=== PATIENT | female | born 1930 | race African-American/Black ===

== ENCOUNTER 2018-06-11 15:23 | Outpatient (CLI) | payer MEDICARE, BC ==
--- NOTE | 2018-06-11 17:23 | ULT ---
RIGHT LOWER EXTREMITY VENOUS ULTRASOUND WITH DOPPLER: HISTORY: Swelling. Edema. COMPARISON: None. TECHNIQUE: Hoyt scale, color flow, Doppler imaging, and spectral waveform analysis was performed of the right lo wer extremity system. FINDINGS: There is compressibility, presence of flow, and augmentation in the common femoral vein, femoral, and popliteal vein. There is flow and compressibility in the posterior tibial vein. There is flow in t he greater saphenous vein and profunda vein. Incidental right inguinal lymph node measuring 4.2 cm in maximum dimension. Fatty hilum is noted. IMPRESSION: 1. Nonspecific lymphadenopathy in the right inguinal region. 2. No evidence of thrombus in the right lower extremity deep venous system. POS: [facility]
== END 2018-06-11 15:24 | disposition home or self-care (01) ==
LOC: SCSULT 15:23
PROVIDERS: ATTEND Family Medicine
DX: R60.0 Localized edema (principal)

== ENCOUNTER 2018-07-16 12:39 | Inpatient (IN) | payer MEDICARE, BC ==
[2018-07-16 14:25] LABS: #Basophils 0.1 thou/uL (0.0-0.2); #Eosinphils 0.2 thou/uL (0.0-0.7); #Monocytes 0.7 thou/uL (0.11-0.59); #Neutrophils 8.4 thou/uL (1.40-6.50); %Basophils 0.7 % (0.0-1.0); %Eosinophils 2.2 % (0.0-10.0); %Lymphocytes 17.8 % (21.0-51.0); %Monocytes 5.7 % (0.0-10.0); %Neutrophils 73.7 % (42.0-75.0); Hemoglobin 13.8 g/dL (12.0-16.0); Mean Corpuscular HGB CONC 31.9 g/dL (32.0-36.0); Mean Corpuscular Hemoglobin 28.7 pg (27.0-31.0); Mean Corpuscular Volume 90.1 fL (78.0-98.0); Mean Platelet Volume 7.7 fL (7.4-10.4); Platelet Count 302 thou/uL (130-400); RBC Distribution Width 12.1 % (11.5-14.5); White Blood Cell (WBC) Count 11.4 thou/uL (4.8-10.8)
[2018-07-16 14:45] LABS: ALT (SGPT) 15 U/L (8-55); AST (SGOT) 24 U/L (5-34); Albumin 3.9 g/dL (3.4-4.8); Alkaline Phosphatase 63 U/L (40-150); Anion Gap 11 mmol/L (10-20); BUN (Urea Nitrogen) 14 mg/dL (9.8-20.1); Bilirubin, Total 0.7 mg/dL (0.2-1.2); Calc. Creatinine Clearance 0 mL/min (70-130); Calcium 9.9 mg/dL (7.8-10.44); Carbon Dioxide 31 mmol/L (23-31); Chloride 99 mmol/L (98-107); Estimated GFR-MDRD 70; Globulin 4.1 g/dL (2.4-3.5); Glucose 125 mg/dL (83-110); Potassium 3.7 mmol/L (3.5-5.1); Sodium 137 mmol/L (136-145)
[2018-07-16] MEDS ORDERED: Bisacodyl 5 MG TAB PO PRN (16:27)
[2018-07-16] MEDS ORDERED: Nitroglycerin 0.4 MG TAB (25 Tab Bottle) SL PRN (16:27)
[2018-07-16] MEDS ORDERED: cloNIDine 0.1 MG TAB PO PRN (16:27)
[2018-07-16] MEDS ORDERED: Ondansetron PF 4 MG/2 ML Vial IVP PRN (16:27)
[2018-07-16] MEDS ORDERED: Calcium Carbonate 500 MG ChewTAB PO PRN (16:27)
[2018-07-16] MEDS ORDERED: Ondansetron ODT 4 MG TAB PO PRN (16:27)
[2018-07-16] MEDS ORDERED: Benzonatate 100 MG CAP PO PRN (16:27)
[2018-07-16] MEDS ORDERED: Senokot S 8.6-50 MG TAB PO PRN ×2 (16:27)
[2018-07-16] MEDS ORDERED: Diabetic Tussin 200 MG/10 ML UDCUP PO PRN (16:27)
[2018-07-16] MEDS ORDERED: hydrALAZINE 20 MG/ML VIAL SLOW IVP PRN (16:27)
[2018-07-16] MEDS ORDERED: Clindamycin/D5W 900 mg/50 ml Premix Bag ONE (17:19)
--- NOTE | 2018-07-16 17:35 | HP ---
DATE OF ADMISSION: 07/16/2018 PRIMARY CARE PHYSICIAN: Zain Panda M.D. CHIEF COMPLAINT: Worsening right lower extremity swelling and pain. HISTORY OF PRESENT ILLNESS: Ms. Dougherty is a pleasant 88-year-old female with past medical history of dyslipidemia who presented to the emergency room with above-mentioned complaint. History is mainl y obtained by the patient's family members present in the room. The patient has some baseline javier ia, is not able to provide much of the history. According to her caregiver and family members present in the emergency room, Ms. Dougherty has been bennett ving a hard time fighting right lower extremity swelling and possible infection for the last whole mo nth or more. The patient has had a visit with possibly a shingle catcher 2 months ago and got some sort o f procedure done on her right foot. Since then, the family has noticed worsening pain and swelling. She was actually treated with oral antibiotics twice as an outpatient and finished all of them 2 wee ks ago, but her pain and swelling are just getting worse. She is not able to bear any weight on the foot because of this. They have noticed poor appetite as well as subjective fevers and lethargy and confusion because of this. The patient has a home health care nurse who checks on her and she sugges hammad that the patient comes to the emergency room today. She actually also had an ultrasound of the right lower leg earlier last month on 06/11/2018, which wa s negative for DVT. In the emergency room, she is afebrile and stable and is not exhibiting any symptoms of sepsis. Her white cell count is marginally elevated at 11.4. Her lactic acid is 1.8. She has been given vancomy autumn so far and is now being admitted for right lower leg cellulitis with failure of outpatient therap y. PAST MEDICAL HISTORY: Dyslipidemia. PAST SURGICAL HISTORY: 1. Right shoulder surgery. 2. Abdominal surgery. 3. Hysterectomy. PSYCHIATRIC HISTORY: No anxiety, no depression. The patient has some senile versus Alzheimer's corey ntia. SOCIAL HISTORY: She lives at home with her family who are the main care providers for her. No histo ry of drug, tobacco or alcohol abuse. FAMILY HISTORY: No significant family history of premature coronary artery disease or stroke. REVIEW OF SYSTEMS: The patient has complaints of persistent pain in the right lower extremity. Othe rwise, she denies any discomfort, but the review of system is limited by the fact that the patient bennett s dementia. LABORATORY DATA: Her CBC shows WBCs at 11.4, otherwise unremarkable. No left shift, no bandemia. S ollie chemistries unremarkable. Blood sugar 125. Lactic acid 1.8. PHYSICAL EXAMINATION: VITAL SIGNS: Upon presentation, blood pressure 114/67, pulse of 85, respirations 16, saturating 95% on room air, temperature 98.1. GENERAL: Sitting up in the wheelchair in the emergency room waiting area. No acute distress. Awake , alert, oriented x3. HEENT: Mucous membranes are slightly dry. No oropharyngeal exudate or erythema. Head is normocepha lic, atraumatic. Pupils equal and reactive to light and accommodation. Extraocular movement intact. NECK: Supple without any lymphadenopathy, JVD or bruit. CHEST: Clear to auscultation without any wheezing, rales or rhonchi. CARDIOVASCULAR: Rate and rhythm is regular without any murmur, rubs or gallops. ABDOMEN: Soft, nontender, nondistended with positive bowel sounds. EXTREMITIES: Shows significant swelling of the right lower extremity extending all the way from her foot to right up her knee and she has tenderness to palpation with gentle touch. Pulses are felt wit h difficulty because of the swelling. She also has poor hygiene of her feet. No obvious open wounds are noticed. NEUROLOGIC: Nonfocal. SKIN: Free of any rashes or bruises. Feels warm and dry to touch. PSYCHIATRIC: Normal affect. IMPRESSION AND PLAN: 1. Right lower extremity cellulitis with failed outpatient therapy. No evidence of sepsis at this t sami. We will start her on broad spectrum IV antibiotic and follow the results of the blood culture. She is hemodynamically stable. We will also repeat the lower extremity Doppler ultrasound to rule o ut deep vein thrombosis as the patient's symptoms reportedly got better and then got worse. She is a lso essentially bed bound. 2. Dyslipidemia. Reconcile home medications. 3. Add deep venous thrombosis and gastrointestinal prophylaxis. We will avoid any sequential compre ssion devices due to significant swelling. Use Lovenox for now. 4. Code status, full code. Discussed with the patient's family who are the main providers. 5. 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 Continue to follow up with PCP. DISPOSITION: Ms. Dougherty is currently being admitted to the hospital for right lower extremity cell ulitis with failed outpatient therapy and rule out DVT. Estimated length of stay is at least 2-3 midnight. Further management will depend upon her clinical course.
[2018-07-16] MEDS: Sodium Chloride 0.9% 1,000 ML IV SCH (20:43)
[2018-07-16] MEDS: Famotidine 20 MG TAB PO SCH (20:44)
[2018-07-16] MEDS ORDERED: Vancomycin HCl 1 GM in Premix Bag 1 BAG IVPB SCH (21:00)
[2018-07-16] MEDS ORDERED: Cefepime 1 GM in Sodium Chloride 0.9% 100 ML IVPB SCH (21:00)
--- NOTE | 2018-07-16 22:19 | ULT ---
DOPPLER VENOUS ULTRASOUND BOTH LOWER EXTREMITIES: INDICATIONS: Edema within both lower extremities. TECHNIQUE: Hoyt-scale, color Doppler, and vascular duplex with spectral analysis was performed of the deep venou s structures of both lower extremities. The common femoral vein, superficial femoral vein, popliteal vein, posterior tibial vein, proximal greater saphenous, and proximal profunda veins were assessed bi laterally. FINDINGS: There is normal compression, flow, and augmentation seen within the deep venous structures of both lo wer extremities. IMPRESSION: No evidence of deep venous thrombosis within both lower extremities. POS: [facility]
[2018-07-16 23:47] VITALS: BMI 23.4
[2018-07-17 05:25] LABS: #Basophils 0.1 thou/uL (0.0-0.2); #Eosinphils 0.3 thou/uL (0.0-0.7); #Lymphocytes 1.9 thou/uL (1.20-3.40); #Monocytes 0.7 thou/uL (0.11-0.59); #Neutrophils 7.5 thou/uL (1.40-6.50); %Basophils 0.9 % (0.0-1.0); %Eosinophils 2.7 % (0.0-10.0); %Lymphocytes 18.1 % (21.0-51.0); %Neutrophils 71.4 % (42.0-75.0); Hemoglobin 11.4 g/dL (12.0-16.0); Mean Corpuscular HGB CONC 32.3 g/dL (32.0-36.0); Mean Corpuscular Hemoglobin 29.2 pg (27.0-31.0); Mean Corpuscular Volume 90.2 fL (78.0-98.0); Mean Platelet Volume 7.9 fL (7.4-10.4); Platelet Count 272 thou/uL (130-400); Red Blood Cell (RBC) Count 3.92 mill/uL (4.20-5.40); White Blood Cell (WBC) Count 10.5 thou/uL (4.8-10.8)
[2018-07-17 05:38] LABS: Anion Gap 12 mmol/L (10-20); BUN (Urea Nitrogen) 13 mg/dL (9.8-20.1); Calc. Creatinine Clearance 53 mL/min (70-130); Calcium 8.8 mg/dL (7.8-10.44); Carbon Dioxide 29 mmol/L (23-31); Chloride 100 mmol/L (98-107); Estimated GFR-MDRD 79; Glucose 114 mg/dL (83-110); Potassium 3.7 mmol/L (3.5-5.1); Sodium 137 mmol/L (136-145)
[2018-07-17] MEDS: Sodium Chloride 0.9% 1,000 ML IV SCH (07:17)
[2018-07-17] MEDS: Famotidine 20 MG TAB PO SCH ×2 (08:30→20:22)
[2018-07-17] MEDS: Enoxaparin Sodium 40 MG/0.4 ML SYRINGE SC SCH (08:30)
[2018-07-17] MEDS: Cefepime 1 GM in Sodium Chloride 0.9% 100 ML IVPB SCH ×2 (08:30→20:21)
[2018-07-17] MEDS: Acetaminophen 325 MG TAB PO PRN ×3 (11:13→20:30)
--- NOTE | 2018-07-17 13:15 | PDOC.PN ---
- Subjective Encounter Start Date: 07/17/18 Encounter Start Time: 13:14 Subjective: nsg notes rev, jose ovn, no new c/o, doesn't want her lunch sandwich -: and wants to know if i would like a bite - Objective Resuscitation Status: Resuscitation Status FULL:Full Resuscitation Vital Signs & Weight: Vital Signs (12 hours) Temp Pulse Resp BP BP Pulse Ox 07/17/18 11:48 97.9 F 70 19 126/74 92 L 07/17/18 07:20 97.9 F 70 18 115/76 92 L 07/17/18 04:58 94 L 07/17/18 04:00 97.5 F L 81 20 110/56 L 20 L Weight Weight 159 lb I&O: 07/16/18 07/17/18 07/18/18 06:59 06:59 06:59 Intake Total 1100 Balance 1100 Result Diagrams: 07/17/18 04:04 07/17/18 04:04 Phys Exam - Physical Examination Constitutional: NAD lying in the hospital bed HEENT: PERRLA, moist MMs Respiratory: no wheezing, no rales, no rhonchi, clear to auscultation bilateral Cardiovascular: RRR, no significant murmur, no rub Gastrointestinal: soft, positive bowel sounds Neurological: moves all 4 limbs Psychiatric: normal affect Dx/Plan - Plan * RLE cellulitis failing o/p abx * continue with inpt iv abx * compared to previous images, sujectively appers improved * d/c IVF as pt is tolerating PO - closely monitor I/O * venogram neg for DVT * * diet: as hailee * activity :as hailee * dvt ppx Review of Systems - Medications/Allergies Allergies/Adverse Reactions: Allergies Allergy/AdvReac Type Severity Reaction Status Date / Time banana Allergy Verified 07/16/18 17:53 Penicillins Allergy Verified 07/16/18 17:53 fentanyl AdvReac Verified 07/16/18 18:22 Medications: Current Medications Acetaminophen (Tylenol) 650 mg PO Q4H PRN PRN Reason: Headache/Fever/Mild Pain (1-3) Last Admin: 07/17/18 11:13 Dose: 650 mg Benzonatate (Tessalon) 100 mg PO Q6H PRN PRN Reason: Cough Bisacodyl (Dulcolax) 10 mg PO DAILYPRN PRN PRN Reason: Constipation Calcium Carbonate (Tums) 1,000 mg PO Q4H PRN PRN Reason: Heartburn or Indigestion Clonidine (Catapres) 0.1 mg PO Q4H PRN PRN Reason: SBP > 160____ Enoxaparin Sodium (Lovenox) 40 mg SC 0900 [facility] Last Admin: 07/17/18 08:30 Dose: 40 mg Famotidine (Pepcid) 20 mg PO BID [facility] Last Admin: 07/17/18 08:30 Dose: 20 mg Guaifenesin (Robitussin Sf) 200 mg PO Q4H PRN PRN Reason: Cough Hydralazine HCl (Apresoline) 10 mg SLOW IVP Q4H PRN PRN Reason: SBP > 180 and HR < 70 Sodium Chloride (Normal Saline 0.9%) 1,000 mls @ 75 mls/hr IV .[id number] [facility] Last Admin: 07/17/18 07:17 Dose: Not Given Vancomycin HCl 750 mg/ Sodium (Chloride) 250 mls @ 250 mls/hr IVPB Q12HR [facility] Cefepime HCl 1 gm/ Sodium (Chloride) 100 mls @ 200 mls/hr IVPB 0800,2000 [facility] Last Admin: 07/17/18 08:30 Dose: 100 mls Miscellaneous Medication (Pharmacy To Dose) 0 each IVPB PRN PRN PRN Reason: [facility] Pharmacy to Dose Nitroglycerin (Nitrostat) 0.4 mg SL Q5MIN PRN PRN Reason: Chest Pain Ondansetron HCl (Zofran Odt) 4 mg PO Q6H PRN PRN Reason: Nausea/Vomiting Ondansetron HCl (Zofran) 4 mg IVP Q6H PRN PRN Reason: Nausea/Vomiting Senna/Docusate Sodium (Senokot S) 2 tab PO BID PRN PRN Reason: Constipation Sodium Chloride (Flush - Normal Saline) 10 ml IVF Q12HR [facility] Last Admin: 07/17/18 08:31 Dose: Not Given Sodium Chloride (Flush - Normal Saline) 10 ml IVF PRN PRN PRN Reason: Saline Flush
[2018-07-18] MEDS: Cefepime 1 GM in Sodium Chloride 0.9% 100 ML IVPB SCH ×2 (08:10→20:18)
[2018-07-18] MEDS: Famotidine 20 MG TAB PO SCH ×2 (08:11→20:24)
[2018-07-18] MEDS: Enoxaparin Sodium 40 MG/0.4 ML SYRINGE SC SCH (08:11)
[2018-07-18 08:56] LABS: Vancomycin, Trough 2.1 ug/mL
[2018-07-18] MEDS ORDERED: Vancomycin HCl 750 MG in Sodium Chloride 0.9% 250 ML 250 ML IVPB SCH (09:00)
[2018-07-18] MEDS ORDERED: traMADol HCl 50 MG TAB PO PRN (09:09)
[2018-07-18] MEDS ORDERED: Vancomycin HCl 1.5 GM in Sodium Chloride 0.9% 250 ML 300 ML IVPB SCH (10:30)
[2018-07-18] MEDS: Acetaminophen 325 MG TAB PO SCH ×2 (15:15→20:24)
[2018-07-18] MEDS ORDERED: Acetaminophen/Codeine 30-300mg Tablet PO PRN (15:26)
[2018-07-18] MEDS: Atorvastatin Calcium 20 MG TAB PO SCH (20:24)
--- NOTE | 2018-07-18 22:10 | PDOC.PN ---
- Subjective Encounter Start Date: 07/18/18 Encounter Start Time: 14:00 Patient seen and examined for Cellulitis. No new complaints. No overnight events - Objective Resuscitation Status: Resuscitation Status FULL:Full Resuscitation MAR Reviewed: Yes Vital Signs & Weight: Vital Signs (12 hours) Temp Pulse Resp BP Pulse Ox 07/18/18 20:00 98.2 F 69 16 110/62 92 L Weight Admit Weight 159 lb Weight 159 lb I&O: 07/17/18 07/18/18 07/19/18 06:59 06:59 06:59 Intake Total 1100 1570 900 Balance 1100 1570 900 Result Diagrams: 07/17/18 04:04 07/17/18 04:04 Phys Exam - Physical Examination Constitutional: NAD Respiratory: no wheezing, no rhonchi Cardiovascular: RRR, no rub Gastrointestinal: soft, non-tender, positive bowel sounds Musculoskeletal: edema present RLE erythema Neurological: moves all 4 limbs Dx/Plan - Plan DVT proph w/SCDs 1. RLE Cellulitis - failed outpt Rx 2. HLD 3. CKD 2 4. PCN allergy PLAN: Cont Vancomycin/Cefepime Monitor Vancomycin levels Cont current meds as below Review of Systems - Review of Systems Respiratory: negative: Cough, Dry, Shortness of Breath, Hemoptysis, SOB with Excertion, Pleuritic Pain, Sputum, Wheezing Cardiovascular: negative: chest pain, palpitations, orthopnea, paroxysmal nocturnal dyspnea, edema, light headedness, other - Medications/Allergies Allergies/Adverse Reactions: Allergies Allergy/AdvReac Type Severity Reaction Status Date / Time banana Allergy Verified 07/16/18 17:53 Penicillins Allergy Verified 07/16/18 17:53 fentanyl AdvReac Verified 07/16/18 18:22 Medications: Current Medications Acetaminophen (Tylenol) 650 mg PO Q4H PRN PRN Reason: Headache/Fever/Mild Pain (1-3) Last Admin: 07/17/18 20:30 Dose: 650 mg Acetaminophen (Tylenol) 650 mg PO TID [facility] Last Admin: 07/18/18 20:24 Dose: 650 mg Acetaminophen/Codeine Phosphate (Tylenol #3) 1 tab PO Q6HR PRN PRN Reason: Pain 4-6 Aspirin (Aspirin) 325 mg PO DAILY [facility] Atorvastatin Calcium (Lipitor) 20 mg PO HS [facility] Last Admin: 07/18/18 20:24 Dose: 20 mg Benzonatate (Tessalon) 100 mg PO Q6H PRN PRN Reason: Cough Bisacodyl (Dulcolax) 10 mg PO DAILYPRN PRN PRN Reason: Constipation Calcium Carbonate (Tums) 1,000 mg PO Q4H PRN PRN Reason: Heartburn or Indigestion Clonidine (Catapres) 0.1 mg PO Q4H PRN PRN Reason: SBP > 160____ Enoxaparin Sodium (Lovenox) 40 mg SC 0900 [facility] Last Admin: 07/18/18 08:11 Dose: 40 mg Famotidine (Pepcid) 20 mg PO BID [facility] Last Admin: 07/18/18 20:24 Dose: 20 mg Guaifenesin (Robitussin Sf) 200 mg PO Q4H PRN PRN Reason: Cough Hydralazine HCl (Apresoline) 10 mg SLOW IVP Q4H PRN PRN Reason: SBP > 180 and HR < 70 Cefepime HCl 1 gm/ Sodium (Chloride) 100 mls @ 200 mls/hr IVPB 0800,2000 [facility] Last Admin: 07/18/18 20:18 Dose: 100 mls Vancomycin HCl 750 mg/ Sodium (Chloride) 250 mls @ 250 mls/hr IVPB 1100,2300 [facility] Miscellaneous Medication (Pharmacy To Dose) 0 each IVPB PRN PRN PRN Reason: [facility] Pharmacy to Dose Nitroglycerin (Nitrostat) 0.4 mg SL Q5MIN PRN PRN Reason: Chest Pain Ondansetron HCl (Zofran Odt) 4 mg PO Q6H PRN PRN Reason: Nausea/Vomiting Ondansetron HCl (Zofran) 4 mg IVP Q6H PRN PRN Reason: Nausea/Vomiting Saccharomyces Boulardii (Florastor) 250 mg PO DAILY [facility] Senna/Docusate Sodium (Senokot S) 2 tab PO BID PRN PRN Reason: Constipation Sodium Chloride (Flush - Normal Saline) 10 ml IVF Q12HR [facility] Last Admin: 07/18/18 20:25 Dose: 10 ml Sodium Chloride (Flush - Normal Saline) 10 ml IVF PRN PRN PRN Reason: Saline Flush Tramadol HCl (Ultram) 50 mg PO Q6H PRN PRN Reason: Moderate Pain (4-6) Last Admin: 07/18/18 09:43 Dose: 50 mg
[2018-07-18] MEDS: Vancomycin HCl 750 MG in Sodium Chloride 0.9% 250 ML 250 ML IVPB SCH (22:36)
[2018-07-19 06:03] LABS: #Basophils 0.1 thou/uL (0.0-0.2); #Eosinphils 0.3 thou/uL (0.0-0.7); #Lymphocytes 2.7 thou/uL (1.20-3.40); #Monocytes 0.7 thou/uL (0.11-0.59); #Neutrophils 4.2 thou/uL (1.40-6.50); %Eosinophils 3.6 % (0.0-10.0); %Lymphocytes 34.3 % (21.0-51.0); %Monocytes 8.6 % (0.0-10.0); %Neutrophils 52.4 % (42.0-75.0); Hemoglobin 11.9 g/dL (12.0-16.0); Mean Corpuscular HGB CONC 31.6 g/dL (32.0-36.0); Mean Corpuscular Hemoglobin 28.6 pg (27.0-31.0); Mean Corpuscular Volume 90.5 fL (78.0-98.0); Mean Platelet Volume 8.1 fL (7.4-10.4); Platelet Count 285 thou/uL (130-400); RBC Distribution Width 12.3 % (11.5-14.5); Red Blood Cell (RBC) Count 4.16 mill/uL (4.20-5.40)
[2018-07-19 06:25] LABS: Anion Gap 9 mmol/L (10-20); BUN (Urea Nitrogen) 6 mg/dL (9.8-20.1); Calc. Creatinine Clearance 55 mL/min (70-130); Calcium 8.6 mg/dL (7.8-10.44); Carbon Dioxide 27 mmol/L (23-31); Chloride 105 mmol/L (98-107); Estimated GFR-MDRD 81; Glucose 103 mg/dL (83-110); Magnesium 1.9 mg/dL (1.6-2.6); Potassium 3.3 mmol/L (3.5-5.1); Sodium 138 mmol/L (136-145)
[2018-07-19] MEDS: Cefepime 1 GM in Sodium Chloride 0.9% 100 ML IVPB SCH ×2 (08:36→20:38)
[2018-07-19] MEDS: Saccharomyces boulardii 250 MG CAP PO SCH (08:36)
[2018-07-19] MEDS: Famotidine 20 MG TAB PO SCH ×2 (08:36→20:40)
[2018-07-19] MEDS: Potassium Chloride 10 MEQ TAB PO SCH ×2 (08:36→17:01)
[2018-07-19] MEDS: Acetaminophen 325 MG TAB PO SCH ×3 (08:36→20:40)
[2018-07-19] MEDS: Aspirin 325 MG TAB PO SCH (08:37)
[2018-07-19] MEDS: Enoxaparin Sodium 40 MG/0.4 ML SYRINGE SC SCH (08:37)
[2018-07-19] MEDS: Vancomycin HCl 750 MG in Sodium Chloride 0.9% 250 ML 250 ML IVPB SCH ×2 (11:48→23:08)
[2018-07-19] MEDS: Atorvastatin Calcium 20 MG TAB PO SCH (20:40)
--- NOTE | 2018-07-19 21:06 | PDOC.PN ---
- Subjective Encounter Start Date: 07/19/18 Encounter Start Time: 09:00 Patient seen and examined for Cellulitis. No new complaints. No overnight events - Objective Resuscitation Status: Resuscitation Status FULL:Full Resuscitation MAR Reviewed: Yes Vital Signs & Weight: Vital Signs (12 hours) Pulse Pulse BP BP Pulse Ox 07/19/18 13:50 81 70 139/70 118/67 92 L Weight Admit Weight 159 lb Weight 159 lb I&O: 07/18/18 07/19/18 07/20/18 06:59 06:59 06:59 Intake Total 1570 1437 Balance 1570 1437 Result Diagrams: 07/19/18 04:35 07/19/18 04:36 Phys Exam - Physical Examination Constitutional: NAD Respiratory: no wheezing, no rhonchi Cardiovascular: RRR, no rub Gastrointestinal: soft, non-tender, positive bowel sounds Musculoskeletal: edema present RLE erythema improving Neurological: moves all 4 limbs Dx/Plan - Plan DVT proph w/SCDs 1. RLE Cellulitis - failed outpt Rx 2. HLD 3. CKD 2 4. Hypokalemia/ PCN allergy PLAN: Cont Vancomycin/Cefepime x 24 hr Replace Potassium Monitor Vancomycin levels Cont current meds as below Check Potassium in AM Review of Systems - Review of Systems Cardiovascular: negative: chest pain, palpitations, orthopnea, paroxysmal nocturnal dyspnea, edema, light headedness, other Gastrointestinal: negative: Nausea, Vomiting, Abdominal Pain, Diarrhea, Constipation, Melena, Hematochezia, Other - Medications/Allergies Allergies/Adverse Reactions: Allergies Allergy/AdvReac Type Severity Reaction Status Date / Time banana Allergy Verified 07/16/18 17:53 Penicillins Allergy Verified 07/16/18 17:53 fentanyl AdvReac Verified 07/16/18 18:22 Medications: Current Medications Acetaminophen (Tylenol) 650 mg PO Q4H PRN PRN Reason: Headache/Fever/Mild Pain (1-3) Last Admin: 07/17/18 20:30 Dose: 650 mg Acetaminophen (Tylenol) 650 mg PO TID [facility] Last Admin: 07/19/18 20:40 Dose: 650 mg Acetaminophen/Codeine Phosphate (Tylenol #3) 1 tab PO Q6HR PRN PRN Reason: Pain 4-6 Aspirin (Aspirin) 325 mg PO DAILY [facility] Last Admin: 07/19/18 08:37 Dose: 325 mg Atorvastatin Calcium (Lipitor) 20 mg PO HS [facility] Last Admin: 07/19/18 20:40 Dose: 20 mg Benzonatate (Tessalon) 100 mg PO Q6H PRN PRN Reason: Cough Bisacodyl (Dulcolax) 10 mg PO DAILYPRN PRN PRN Reason: Constipation Calcium Carbonate (Tums) 1,000 mg PO Q4H PRN PRN Reason: Heartburn or Indigestion Clonidine (Catapres) 0.1 mg PO Q4H PRN PRN Reason: SBP > 160____ Enoxaparin Sodium (Lovenox) 40 mg SC 0900 [facility] Last Admin: 07/19/18 08:37 Dose: 40 mg Famotidine (Pepcid) 20 mg PO BID [facility] Last Admin: 07/19/18 20:40 Dose: 20 mg Guaifenesin (Robitussin Sf) 200 mg PO Q4H PRN PRN Reason: Cough Hydralazine HCl (Apresoline) 10 mg SLOW IVP Q4H PRN PRN Reason: SBP > 180 and HR < 70 Cefepime HCl 1 gm/ Sodium (Chloride) 100 mls @ 200 mls/hr IVPB 0800,2000 [facility] Last Admin: 07/19/18 20:38 Dose: 100 mls Vancomycin HCl 750 mg/ Sodium (Chloride) 250 mls @ 250 mls/hr IVPB 1100,2300 [facility] Last Admin: 07/19/18 11:48 Dose: 250 mls Miscellaneous Medication (Pharmacy To Dose) 0 each IVPB PRN PRN PRN Reason: [facility] Pharmacy to Dose Nitroglycerin (Nitrostat) 0.4 mg SL Q5MIN PRN PRN Reason: Chest Pain Ondansetron HCl (Zofran Odt) 4 mg PO Q6H PRN PRN Reason: Nausea/Vomiting Ondansetron HCl (Zofran) 4 mg IVP Q6H PRN PRN Reason: Nausea/Vomiting Saccharomyces Boulardii (Florastor) 250 mg PO DAILY [facility] Last Admin: 07/19/18 08:36 Dose: 250 mg Senna/Docusate Sodium (Senokot S) 2 tab PO BID PRN PRN Reason: Constipation Sodium Chloride (Flush - Normal Saline) 10 ml IVF Q12HR [facility] Last Admin: 07/19/18 20:41 Dose: Not Given Sodium Chloride (Flush - Normal Saline) 10 ml IVF PRN PRN PRN Reason: Saline Flush Tramadol HCl (Ultram) 50 mg PO Q6H PRN PRN Reason: Moderate Pain (4-6) Last Admin: 07/18/18 09:43 Dose: 50 mg
[2018-07-19 22:22] LABS: Vancomycin, Trough 15.3 ug/mL
[2018-07-20] MEDS: Cefepime 1 GM in Sodium Chloride 0.9% 100 ML IVPB SCH (07:52)
[2018-07-20] MEDS: Saccharomyces boulardii 250 MG CAP PO SCH (07:52)
[2018-07-20] MEDS: Aspirin 325 MG TAB PO SCH (07:52)
[2018-07-20] MEDS: Famotidine 20 MG TAB PO SCH (07:52)
[2018-07-20] MEDS: Acetaminophen 325 MG TAB PO SCH ×2 (07:53→15:11)
[2018-07-20 07:54] VITALS: BP 167/73; TEMP 97.4
[2018-07-20] MEDS: Vancomycin HCl 750 MG in Sodium Chloride 0.9% 250 ML 250 ML IVPB SCH (11:11)
--- NOTE | 2018-07-20 13:41 | DIS ---
DATE OF ADMISSION: 07/16/2018 DATE OF DISCHARGE: 07/20/2018 DISCHARGE DISPOSITION: Home. FOLLOWUP: Follow up with primary care physician, Dr. Zain Panda in 1 week. ALLERGIES: The patient is allergic to PENICILLIN and FENTANYL. DISCHARGE MEDICATIONS: Keflex 500 mg 3 times daily for 10 days, doxycycline 100 mg b.i.d. for the ne xt 10 days, Florastor 250 mg daily, aspirin 325 mg daily, Lipitor 20 mg at bedtime, Tylenol #3 as nee ded. The patient was seen and examined on the day of discharge, denies any new complaints, no chest pain, shortness of breath, palpitations. BRIEF HOSPITAL COURSE: The patient is an 88-year-old female who presented to the emergency room with worsening right lower extremity swelling along with erythema. She was recently diagnosed with cellu litis and failed outpatient therapy. Please refer to the history and physical dated 07/16/[address] Kalia Van for further details. The patient was admitted to the hospital with a diagnosis of cellulitis. She was started on vancomyc in with cefepime with good improvement in her symptoms. Erythema and swelling has significantly impr rosas. She appears stable for discharge on oral antibiotics. Plan of care was discussed with the pat allyssa in detail. She stated understanding. FINAL DIAGNOSES: 1. Right lower extremity cellulitis. Please note patient failed outpatient therapy. 2. Hyperlipidemia. 3. Chronic kidney disease stage 2. 4. Hypokalemia, replaced. The patient will benefit from a repeat BMP after 1 week. 5. Penicillin allergy. The plan of care was discussed with the patient in detail. She stated understanding.
== END 2018-07-20 16:50 | disposition home or self-care (01) | DRG 603 ==
LOC: ERS 12:39 → T4-B 17:47
PROVIDERS: ADMIT Internal Medicine; ATTEND Internal Medicine
DX: L03.115 Cellulitis of right lower limb (principal); N18.2 Chronic kidney disease, stage 2 (mild); E87.6 Hypokalemia; E78.5 Hyperlipidemia, unspecified; Z88.0 Allergy status to penicillin; Z88.1 Allergy status to other antibiotic agents; Z91.018 Allergy to other foods; F03.90 Unspecified dementia, unspecified severity, without behavioral disturbance, psychotic disturbance, mood disturbance, and anxiety
CPT/HCPCS: 36415; 80048; 80053; 80202; 83605; 83735; 84132; 85025; 87040; 93970; 96365; 96367; G8978-GP-CK; G8979-GP-CJ; G8987-GO-CJ; G8988-GO-CI; G8996-GN-CK; G8997-GN-CI; J0692; J1650; J3370; J3490; J7050

== ENCOUNTER 2018-08-08 17:44 | Inpatient (IN) | payer MEDICARE, BC ==
[2018-08-08 19:27] LABS: #Basophils 0.1 thou/uL (0.0-0.2); #Eosinphils 0.4 thou/uL (0.0-0.7); #Lymphocytes 2.5 thou/uL (1.20-3.40); #Monocytes 0.6 thou/uL (0.11-0.59); #Neutrophils 3.6 thou/uL (1.40-6.50); %Basophils 1.3 % (0.0-1.0); %Monocytes 8.1 % (0.0-10.0); %Neutrophils 50.5 % (42.0-75.0); Hemoglobin 11.9 g/dL (12.0-16.0); Mean Corpuscular HGB CONC 33.4 g/dL (32.0-36.0); Mean Corpuscular Hemoglobin 29.9 pg (27.0-31.0); Mean Corpuscular Volume 89.4 fL (78.0-98.0); Mean Platelet Volume 8.4 fL (7.4-10.4); Platelet Count 221 thou/uL (130-400); RBC Distribution Width 12.3 % (11.5-14.5); Red Blood Cell (RBC) Count 3.97 mill/uL (4.20-5.40)
[2018-08-08 19:36] LABS: Bilirubin Negative (Negative); Blood, Urine Negative (Negative); Clarity CLOUDY (Clear); Glucose, Urine (Dipstick) Negative (Negative); Leukocyte Moderate (Negative); Nitrite Negative (Negative); Protein, Urine (Dipstick) Negative (Neg-Trace); Specific Gravity, Urine 1.009 (1.002-1.036); Urobilinogen 0.2 mg/dL (0.2-1.0); pH, Urine 6.5 (5.0-9.0)
[2018-08-08 19:38] LABS: Bacteria/HPF None Seen HPF (None Seen); Hyaline Casts/LPF 0-3 HYALINE CAST LPF (0-3 Hyaline); Pathc Cast-AUWi Flag 0.43 (0-2.49); Squamous Epithelial 0-3 HPF (0-3)
[2018-08-08 19:39] LABS: Yeast-AUWi Flag 35.3 (0-25.0)
[2018-08-08 19:40] LABS: ALT (SGPT) Less than 7 U/L (8-55); AST (SGOT) 13 U/L (5-34); Albumin 3.7 g/dL (3.4-4.8); Alkaline Phosphatase 73 U/L (40-150); Anion Gap 10 mmol/L (10-20); BUN (Urea Nitrogen) 8 mg/dL (9.8-20.1); Bilirubin, Total 0.4 mg/dL (0.2-1.2); CK (CPK) 41 U/L (29-168); Calc. Creatinine Clearance 0 mL/min (70-130); Calcium 9.3 mg/dL (7.8-10.44); Carbon Dioxide 31 mmol/L (23-31); Chloride 101 mmol/L (98-107); Estimated GFR-MDRD 81; Globulin 3.6 g/dL (2.4-3.5); Glucose 107 mg/dL (83-110); Potassium 3.2 mmol/L (3.5-5.1); Protein, Total 7.3 g/dL (6.0-8.3); Sodium 139 mmol/L (136-145)
[2018-08-08 19:44] LABS: CKMB 0.9 ng/mL (0-6.6); Troponin I Less than 0.010 ng/mL (< 0.028)
[2018-08-08 19:46] LABS: Transitional Epithelial 0-3 HPF (0-3); Yeast-All Forms None Seen HPF (None Seen)
--- NOTE | 2018-08-08 20:13 | RAD ---
PORTABLE CHEST: 08/08/18 HISTORY: Dyspnea. COMPARISON: The most recent prior examination which is 08/30/10. Heart size is within normal limits for portable technique. There are atherosclerotic changes of the a deborah. There are pleural based plaques, some of which are calcified. I do not see any definite calcifi cation along the hemidiaphragms. The changes do raise the possibility of asbestosis exposure. Changes were present slightly less prominent on the prior exam. Pleural based plaques raising the possibility of asbestosis exposure with some mild chronic interstit ial lung change. POS: [facility]
[2018-08-08] MEDS ORDERED: MEROPENEM 1 GM/50 ML 1 GM in Premix Bag 1 BAG IVPB SCH (20:15)
--- NOTE | 2018-08-08 21:24 | ULT ---
BILATERAL LOWER EXTREMITY VENOUS DOPPLER ULTRASOUND 08/08/18 COMPARISON: None. HISTORY: Pain, edema and redness, swelling, assess for DVT. TECHNIQUE: Multiplanar buchanan scale sonographic imaging of the venous structures of bilateral lower extremities ob tained with color flow and spectral analysis. FINDINGS: Right common femoral vein, greater saphenous vein, profunda femoral vein, femoral vein, popliteal vei n, and posterior tibial vein are patent. There is normal blood flow, augmentation and compression wit hin the deep venous system on the right. No evidence for right lower extremity DVT. Left common femoral vein, greater saphenous vein, and profunda femoral vein are patent. There is only partial compression of the femoral vein in the mid and distal thigh, evidence of DVT. Left popliteal vein is compressible and left posterior tibial vein is patent. IMPRESSION: Incomplete compression of the mid and distal left femoral vein, evidence of DVT. The performing sonog rapher relayed this information to Dr. Weiss at the time of the procedure. POS: [facility]
[2018-08-08] MEDS ORDERED: Morphine 4 MG/ML VIAL ONE (21:48)
[2018-08-08] MEDS ORDERED: Ondansetron ODT 4 MG TAB PO PRN (22:40)
[2018-08-08] MEDS ORDERED: Acetaminophen 325 MG TAB PO PRN (22:40)
[2018-08-08] MEDS ORDERED: Ondansetron PF 4 MG/2 ML Vial IVP PRN (22:40)
[2018-08-08] MEDS ORDERED: Enoxaparin Sodium 80 MG/0.8 ML SYRINGE SC SCH (23:00)
[2018-08-08] MEDS ORDERED: Enoxaparin Sodium 80 MG/0.8 ML SYRINGE ONE ×2 (23:27→23:34)
[2018-08-08] MEDS ORDERED: Enoxaparin Sodium 100 MG/ML SYRINGE ONE (23:36)
[2018-08-09 00:50] VITALS: BMI 24.5
[2018-08-09] MEDS: Haloperidol Lactate 5 MG/ML VIAL IM PRN ×3 (01:24→22:22)
[2018-08-09] MEDS: Sodium Chloride 0.9% 1,000 ML IV SCH ×3 (01:27→20:59)
--- NOTE | 2018-08-09 05:00 | HP ---
CHIEF COMPLAINT: Right Lower leg edema. HISTORY OF PRESENT ILLNESS: This is an 88-year-old female with past medical history of hyperlipidemia, presenting with Right lower extremity swelling. The patient also stated that there is pain in the Right lower extremity. The patient was recently hospitalized for similar presentation on 07/16/2018. The patient at that time was started and completed on some antibiotics. The patient went to the primary care doctor, Dr. Panda and the patient was started on doxycycline and Keflex in the outpatient setting. At this point, the patient is coming back because the patient edema and pain at R lower extremity are now worsening. The patient endorses 8/10 pain, dull in nature, and the condition is not being relieved by anything at this time. At this time, the patient denies any fever, chills, nausea, vomiting, chest pain, palpitations, shortness of breath, abdominal pain, constipation, diarrhea, hematochezia, melena, dysuria, or hematuria, but admits to having pain in the lower extremities bilaterally and some edema. ROS: positive for R lower ext pain, otherwise as documented in HPI, all systems reviewed and are negative. PAST MEDICAL HISTORY: Significant for hyperlipidemia. FAMILY HISTORY: Reviewed and nonsignificant to this visit. PAST SURGICAL HISTORY: The patient had right shoulder surgery in the past, hysterectomy. PSYCH HISTORY: The patient has no previous psych history. SOCIAL HISTORY: The patient denies alcohol use, the patient denies illicit drug use, and the patient denies any smoking history. ALLERGIES: THE PATIENT IS ALLERGIC TO PENICILLINS AND BANANA. CURRENT MEDICATIONS: The patient takes aspirin 81 mg and simvastatin 40 mg. PHYSICAL EXAMINATION: VITAL SIGNS: Blood pressure is 126/60, pulse of 84, respiratory rate of 13, and O2 saturation of 95% on room air. GENERAL: The patient is lying in bed, little bit confused, however, able to state her name. The patient is not in any acute distress. HEENT: Normocephalic and atraumatic. Pupils are equally round and reactive to light. Extraocular movements are intact. No scleral icterus. No conjunctival pallor. Mucous membranes are moist. NECK: Trachea is midline. Full range of motion. No JVDs. Supple. RESPIRATORY: Lungs are clear to auscultation bilaterally. No wheezing, no rales, no rhonchi appreciated. CARDIAC: Positive S1 and S2. Regular rate and rhythm. No murmurs, no gallops , no rubs appreciated. ABDOMEN: Soft, nontender, and nondistended. Positive bowel sounds in all quadrants. No peritoneal signs. No palpable masses appreciated. EXTREMITIES: The patient has 5/5 upper extremity strength and 5/5 lower extremity strength. The patient has good pulses bilaterally in the upper and lower extremities. There is no edema of the upper extremities. In the lower extremities, the patient do have right leg cellulitis which has extended all the way up to the of middle of the leg below the knee with some erythema noted and 1+ edema also noted. NEURO: Cranial nerves 2 through 12 grossly intact. No neurologic deficits noted. SKIN: Warm, dry, and intact. Kindly refer to the description of the right lower extremity. DIAGNOSTIC DATA: 1. EKG that was done showed normal sinus rhythm with a rate of 75. 2. Chest x-ray showed no acute changes. ED COURSE: The patient was given Lovenox, meropenem, vancomycin, sodium chloride, and morphine injection for pain. LABORATORY DATA: WBC is 7.0, hemoglobin is 11.9, hematocrit is 35.5, and platelet count is 221. Sodium is 139, potassium is 3.2, chloride is 101, carbon dioxide of 31, anion gap of 10, BUN is 8, creatinine is 0.81, glucose of 107. Lactic acid is 1.1. AST is 13, ALT is less than 7, and alkaline phosphatase is 73. Troponin is less than 0.010. BNP is 56. Urinalysis shows moderate leuko esterases. ASSESSMENT/PLAN: This is an 88-year-old female who is being admitted for; 1. Right lower extremity deep vein thrombosis. The patient has been started on therapeutic Lovenox at this time. We will continue the patient on Lovenox. We will follow up ammonia labs. We will transition the patient to p.o. anticoagulation in the a.m. 2. Right lower extremity cellulitis. The patient eventually continued on vancomycin. We will monitor the patient's BMP in the a.m. and we will continue to monitor the patient. 3. Urinary tract infection. We will continue the patient on vancomycin and Rocephin for the urinary tract infection. We will continue to monitor the patient closely. We will monitor the patient's mental status. 4. Hyperlipidemia. We will continue the patient on her home medications. 5. Deep vein thrombosis and gastrointestinal prophylaxis. Patient seen and examined on 08/08/2018 Job ID: [id number] MTDD
[2018-08-09 06:21] LABS: #Basophils 0.1 thou/uL (0.0-0.2); #Eosinphils 0.4 thou/uL (0.0-0.7); #Lymphocytes 2.2 thou/uL (1.20-3.40); #Monocytes 0.6 thou/uL (0.11-0.59); #Neutrophils 3.8 thou/uL (1.40-6.50); %Basophils 0.8 % (0.0-1.0); %Eosinophils 5.1 % (0.0-10.0); %Lymphocytes 31.4 % (21.0-51.0); %Monocytes 8.2 % (0.0-10.0); %Neutrophils 54.6 % (42.0-75.0); Hemoglobin 10.8 g/dL (12.0-16.0); Mean Corpuscular HGB CONC 33.3 g/dL (32.0-36.0); Mean Corpuscular Hemoglobin 29.9 pg (27.0-31.0); Mean Corpuscular Volume 89.8 fL (78.0-98.0); Mean Platelet Volume 8.4 fL (7.4-10.4); Platelet Count 205 thou/uL (130-400); RBC Distribution Width 12.4 % (11.5-14.5); Red Blood Cell (RBC) Count 3.61 mill/uL (4.20-5.40)
[2018-08-09 06:35] LABS: Anion Gap 8 mmol/L (10-20); BUN (Urea Nitrogen) 7 mg/dL (9.8-20.1); Calc. Creatinine Clearance 58 mL/min (70-130); Calcium 8.9 mg/dL (7.8-10.44); Carbon Dioxide 30 mmol/L (23-31); Chloride 106 mmol/L (98-107); Estimated GFR-MDRD 87; Glucose 102 mg/dL (83-110); Potassium 3.2 mmol/L (3.5-5.1); Sodium 141 mmol/L (136-145)
[2018-08-09] MEDS: Aspirin 325 MG TAB PO SCH (08:54)
[2018-08-09] MEDS: Famotidine 20 MG TAB PO SCH ×2 (08:54→20:52)
[2018-08-09] MEDS: Famotidine/PF 20 mg/2ml Vial SLOW IVP SCH ×2 (08:55→20:53)
[2018-08-09] MEDS: Vancomycin HCl 750 MG in Sodium Chloride 0.9% 250 ML 250 ML IVPB SCH ×2 (08:58→20:53)
[2018-08-09] MEDS: Aztreonam 1 GM in Sodium Chloride 0.9% 100 ML IVPB SCH ×2 (08:58→20:52)
[2018-08-09] MEDS ORDERED: Enoxaparin Sodium 80 MG/0.8 ML SYRINGE SC SCH (09:00)
--- NOTE | 2018-08-09 12:52 | PQF ---
ALEXIS LEWIS RICHA MD [id number] [facility]-264 [id number] CLINICAL DOCUMENTATION IMPROVEMENT CLARIFICATION FORM: ICD-10 Updated PLEASE DO AN ADDENDUM TO THE PROGRESS NOTE WITH ANY DOCUMENTATION UPDATES OR ADDITIONS AND CARRY THROUGH TO DC SUMMARY. THANK YOU. DATE: 08-09-18 ATTN: DR. ULRICH Please exercise your independent, professional judgment in responding to the clarification form. Clinical indicators are provided on the bottom of this form for your review Please check appropriate box(s): x__ I (concur) with the NURSING findings as stated below. [ x] Pressure Ulcer: (Stage I: Erythema; Stage II: Partial thickness; Stage III : Full thickness; Stage IV: Necrosis to muscle/bone) [ ] Location: POA: [ x] Yes [ ] No[ ] Unable to determine Stage (I to IV): (Left___x__ Right Bilateral N/A ) [ ] No pressure ulcer diagnosis [ ] Other diagnosis [ ] Unable to determine In addition, please specify: Present on Admission (POA): [ x] Yes [ ] No [ ] Unable to determine For continuity of documentation, please document condition throughout progress notes and discharge summary. Thank You. CLINICAL INDICATORS - SIGNS / SYMPTOMS / LABS 08-09 NURSING ASSESSMENT: PU STAGE 2 LEFT BUTTOCK RISK FACTORS: ED: IMPAIRED MOBILITY - USES WALKER H&P: BLE SWELLING W/ RIGHT DVT AND CELLULITIS 08-09 NURSING ASSESSMENT - DIAPER/INCONTINENT TREATMENTS: 08-09 NURSING ASSESSMENT * 2 PERSON ASSIST * ENCOURAGE PT TO REPOSITION FREQUENTLY * INCONTINENCE CARE PRODUCTS USED PRN * MATTRESS: PRESSURE REDUCTION THANK YOU, SARAH (This form is maintained as a part of the permanent medical record) 2014 [employer]. All Rights Reserved Sarah Bang RN, BS [email or web address]
--- NOTE | 2018-08-09 13:28 | PDOC.PN ---
- Subjective Encounter Start Date: 08/09/18 Encounter Start Time: 13:25 Subjective: pt was agitated earlier & recevied some med & now asleep -: family at bedside & care discussed.chart reviewed -: recurrent pain & swelling right leg ,now Left leg as well - Objective Resuscitation Status - Order Detail: 08/08/18 22:40 Resuscitation Status Routine Resuscitation Status: FULL: Full Resuscitation MAR Reviewed: Yes Vital Signs & Weight: Vital Signs (12 hours) Temp Pulse Resp BP Pulse Ox 08/09/18 08:00 98.3 F 70 20 165/88 H 100 08/09/18 04:00 98.3 F 81 20 134/65 92 L Weight Weight 157 lb Result Diagrams: 08/09/18 05:33 08/09/18 05:33 Additional Labs: Microbiology 08/08/18 19:48 Venous blood - Left Arm Blood Culture - Preliminary Specimen has been received and culture in progress. No Growth to date. 08/08/18 19:41 Venous blood - Right Arm Blood Culture - Preliminary Specimen has been received and culture in progress. No Growth to date. Phys Exam - Physical Examination Constitutional: NAD HEENT: moist MMs, oral pharynx no lesions Neck: no nodes, no JVD, supple, full ROM Respiratory: no wheezing, no rales, no rhonchi Cardiovascular: RRR, no significant murmur Gastrointestinal: soft, no distention, positive bowel sounds Musculoskeletal: no edema, pulses present warmth R leg w erythema.not much left leg-family reports improvement Neurological: moves all 4 limbs Lymphatic: no nodes Skin: no rash Dx/Plan (1) Deep venous thrombosis of left femoral vein Code(s): I82.412 - ACUTE EMBOLISM AND THROMBOSIS OF LEFT FEMORAL VEIN Status: Acute (2) Recurrent cellulitis of lower extremity Code(s): L03.119 - CELLULITIS OF UNSPECIFIED PART OF LIMB Status: Acute (3) HLD (hyperlipidemia) Code(s): E78.5 - HYPERLIPIDEMIA, UNSPECIFIED Status: Chronic - Plan plan discussed w/ family, continue antibiotics, PT/OT, out of bed/ambulate, DVT proph w/SCDs change Lovenox to Eliquis, 10 mg BID X7 days ,then 5 BID X 3 months -: cont ABx. -: may need suppressive RX for recurrent episodes.ID referral as an OP -: HD stable.cont gentle IVF -: am labs. * . Review of Systems - Review of Systems Other: can not be obtained due to somnolence - Medications/Allergies Allergies/Adverse Reactions: Allergies Allergy/AdvReac Type Severity Reaction Status Date / Time banana Allergy Verified 08/09/18 06:40 Penicillins Allergy Verified 08/09/18 06:40 fentanyl AdvReac Verified 08/09/18 06:40 Medications: Current Medications Acetaminophen (Tylenol) 650 mg PO Q4H PRN PRN Reason: Headache/Fever/Mild Pain (1-3) Apixaban (Eliquis) 10 mg PO BID [facility] Aspirin (Aspirin) 325 mg PO DAILY [facility] Last Admin: 08/09/18 08:54 Dose: 325 mg Atorvastatin Calcium (Lipitor) 20 mg PO HS [facility] Famotidine (Pepcid) 20 mg SLOW IVP Q12HR [facility] Last Admin: 08/09/18 08:55 Dose: Not Given Famotidine (Pepcid) 20 mg PO BID [facility] Last Admin: 08/09/18 08:54 Dose: 20 mg Haloperidol Lactate (Haldol) 2 mg IM Q4H PRN PRN Reason: .AGITATION Last Admin: 08/09/18 08:56 Dose: 2 mg Sodium Chloride (Normal Saline 0.9%) 1,000 mls @ 75 mls/hr IV .[id number] [facility] Last Admin: 08/09/18 01:28 Dose: Not Given Vancomycin HCl 750 mg/ Sodium (Chloride) 250 mls @ 250 mls/hr IVPB Q12HR [facility] Last Admin: 08/09/18 08:58 Dose: 250 mls Aztreonam 1 gm/ Sodium (Chloride) 100 mls @ 100 mls/hr IVPB Q12HR [facility] Last Admin: 08/09/18 08:58 Dose: 100 mls Miscellaneous Medication (Pharmacy To Dose) 0 each IVPB ONE PRN PRN Reason: LOVENOX Pharmacy to dose Stop: 08/09/18 22:48 Miscellaneous Medication (Pharmacy To Dose) 1 each IVPB PRN PRN PRN Reason: Pharmacy to dose Ondansetron HCl (Zofran Odt) 4 mg PO Q6H PRN PRN Reason: Nausea/Vomiting Ondansetron HCl (Zofran) 4 mg IVP Q6H PRN PRN Reason: Nausea/Vomiting Sodium Chloride (Flush - Normal Saline) 10 ml IVF Q12HR [facility] Last Admin: 08/09/18 08:58 Dose: 10 ml Sodium Chloride (Flush - Normal Saline) 10 ml IVF PRN PRN PRN Reason: Saline Flush
[2018-08-09] MEDS: Apixaban 5 MG TAB PO SCH (20:53)
[2018-08-09] MEDS: Atorvastatin Calcium 20 MG TAB PO SCH (20:53)
[2018-08-10] MEDS: Haloperidol Lactate 5 MG/ML VIAL IM PRN (02:07)
[2018-08-10 09:16] LABS: Vancomycin, Trough 11.7 ug/mL
[2018-08-10] MEDS: Famotidine 20 MG TAB PO SCH ×2 (10:15→21:16)
[2018-08-10] MEDS: Aztreonam 1 GM in Sodium Chloride 0.9% 100 ML IVPB SCH ×2 (10:15→21:16)
[2018-08-10] MEDS: Famotidine/PF 20 mg/2ml Vial SLOW IVP SCH ×2 (10:15→21:17)
[2018-08-10] MEDS: Apixaban 5 MG TAB PO SCH ×2 (10:15→21:16)
[2018-08-10] MEDS: Aspirin 325 MG TAB PO SCH (10:16)
[2018-08-10] MEDS: Sodium Chloride 0.9% 1,000 ML IV SCH (10:16)
[2018-08-10] MEDS: Vancomycin HCl 1 GM in Premix Bag 1 BAG IVPB SCH ×2 (12:21→23:33)
[2018-08-10] MEDS: Vancomycin HCl 750 MG in Sodium Chloride 0.9% 250 ML 250 ML IVPB SCH (12:22)
--- NOTE | 2018-08-10 15:30 | PDOC.PN ---
- Subjective Encounter Start Date: 08/10/18 Encounter Start Time: 08:40 Pt seen for followup re: DVT. Pt sleepy but arousable, unable to provide history, unable to complete ROS. - Objective Resuscitation Status - Order Detail: 08/08/18 22:40 Resuscitation Status Routine Resuscitation Status: FULL: Full Resuscitation MAR Reviewed: Yes Vital Signs & Weight: Vital Signs (12 hours) Temp Pulse Pulse Pulse Resp BP BP 08/10/18 14:35 79 130/81 133/71 08/10/18 12:51 96.6 F L 86 16 08/10/18 11:30 93 86 186/86 H 185/87 H 08/10/18 08:00 98.5 F 78 17 BP Pulse Ox 08/10/18 14:35 08/10/18 12:51 141/82 H 95 08/10/18 11:30 08/10/18 08:00 148/76 H 93 L Weight Admit Weight 157 lb Weight 157 lb I&O: 08/09/18 08/10/18 08/11/18 06:59 06:59 06:59 Intake Total 914 Output Total 600 Balance 314 Result Diagrams: 08/09/18 05:33 08/09/18 05:33 EKG Reviewed by me: Yes (Tele: NSR) Phys Exam - Physical Examination Constitutional: NAD HEENT: moist MMs Neck: supple Respiratory: clear to auscultation bilateral Cardiovascular: RRR Gastrointestinal: soft Neurological: moves all 4 limbs Deviation from normal: Unable to assess Deviation from normal: No clear evidence of cellulitis; wounds as documented Dx/Plan (1) UTI (urinary tract infection) Status: Acute Comment: continue IV antibiotics as below, await urine cultures (2) Deep venous thrombosis of left femoral vein Code(s): I82.412 - ACUTE EMBOLISM AND THROMBOSIS OF LEFT FEMORAL VEIN Status: Acute Comment: continue Eliquis (3) HLD (hyperlipidemia) Code(s): E78.5 - HYPERLIPIDEMIA, UNSPECIFIED Status: Chronic Comment: continue statin (4) Cellulitis Code(s): L03.90 - CELLULITIS, UNSPECIFIED Status: Suspected - Plan * . Review of Systems - Medications/Allergies Allergies/Adverse Reactions: Allergies Allergy/AdvReac Type Severity Reaction Status Date / Time banana Allergy Verified 08/09/18 06:40 Penicillins Allergy Verified 08/09/18 06:40 fentanyl AdvReac Verified 08/09/18 06:40 Medications: Current Medications Acetaminophen (Tylenol) 650 mg PO Q4H PRN PRN Reason: Headache/Fever/Mild Pain (1-3) Apixaban (Eliquis) 10 mg PO BID [facility] Last Admin: 08/10/18 10:15 Dose: 10 mg Aspirin (Aspirin) 325 mg PO DAILY [facility] Last Admin: 08/10/18 10:16 Dose: 325 mg Atorvastatin Calcium (Lipitor) 20 mg PO HS [facility] Last Admin: 08/09/18 20:53 Dose: 20 mg Famotidine (Pepcid) 20 mg SLOW IVP Q12HR [facility] Last Admin: 08/10/18 10:15 Dose: 20 mg Famotidine (Pepcid) 20 mg PO BID [facility] Last Admin: 08/10/18 10:15 Dose: 20 mg Haloperidol Lactate (Haldol) 2 mg IM Q2H PRN PRN Reason: .AGITATION Last Admin: 08/10/18 02:07 Dose: 2 mg Sodium Chloride (Normal Saline 0.9%) 1,000 mls @ 75 mls/hr IV .[id number] [facility] Last Admin: 08/10/18 10:16 Dose: 1,000 mls Aztreonam 1 gm/ Sodium (Chloride) 100 mls @ 100 mls/hr IVPB Q12HR [facility] Last Admin: 08/10/18 10:15 Dose: 100 mls Vancomycin HCl 1 gm/ Device 200 mls @ 200 mls/hr IVPB 1100,2300 [facility] Last Admin: 08/10/18 12:21 Dose: 200 mls Miscellaneous Medication (Pharmacy To Dose) 1 each IVPB PRN PRN PRN Reason: Pharmacy to dose Ondansetron HCl (Zofran Odt) 4 mg PO Q6H PRN PRN Reason: Nausea/Vomiting Ondansetron HCl (Zofran) 4 mg IVP Q6H PRN PRN Reason: Nausea/Vomiting Sodium Chloride (Flush - Normal Saline) 10 ml IVF Q12HR [facility] Last Admin: 08/10/18 10:17 Dose: Not Given Sodium Chloride (Flush - Normal Saline) 10 ml IVF PRN PRN PRN Reason: Saline Flush
[2018-08-10] MEDS ORDERED: Potassium Chloride 20 MEQ TAB PO SCH (15:45)
[2018-08-10] MEDS: Atorvastatin Calcium 20 MG TAB PO SCH (21:16)
[2018-08-11] MEDS: Sodium Chloride 0.9% 1,000 ML IV SCH ×3 (06:40→21:04)
[2018-08-11] MEDS: Famotidine 20 MG TAB PO SCH ×2 (09:18→20:54)
[2018-08-11] MEDS: Aspirin 325 MG TAB PO SCH (09:19)
[2018-08-11] MEDS: Famotidine/PF 20 mg/2ml Vial SLOW IVP SCH ×2 (09:20→20:55)
[2018-08-11] MEDS: Aztreonam 1 GM in Sodium Chloride 0.9% 100 ML IVPB SCH ×2 (09:20→20:56)
[2018-08-11] MEDS: Apixaban 5 MG TAB PO SCH ×2 (09:24→20:53)
[2018-08-11 10:08] LABS: #Eosinphils 0.4 thou/uL (0.0-0.7); #Lymphocytes 2.2 thou/uL (1.20-3.40); #Monocytes 0.6 thou/uL (0.11-0.59); #Neutrophils 4.7 thou/uL (1.40-6.50); %Basophils 0.4 % (0.0-1.0); %Eosinophils 4.7 % (0.0-10.0); %Lymphocytes 27.7 % (21.0-51.0); %Neutrophils 60.2 % (42.0-75.0); Hemoglobin 11.5 g/dL (12.0-16.0); Mean Corpuscular HGB CONC 33.8 g/dL (32.0-36.0); Mean Corpuscular Hemoglobin 30.1 pg (27.0-31.0); Mean Corpuscular Volume 89.1 fL (78.0-98.0); Mean Platelet Volume 7.9 fL (7.4-10.4); Platelet Count 212 thou/uL (130-400); RBC Distribution Width 12.4 % (11.5-14.5); Red Blood Cell (RBC) Count 3.82 mill/uL (4.20-5.40); White Blood Cell (WBC) Count 7.8 thou/uL (4.8-10.8)
[2018-08-11 10:28] LABS: Anion Gap 11 mmol/L (10-20); BUN (Urea Nitrogen) Less than 4 mg/dL (9.8-20.1); Calc. Creatinine Clearance 58 mL/min (70-130); Calcium 8.9 mg/dL (7.8-10.44); Carbon Dioxide 27 mmol/L (23-31); Chloride 106 mmol/L (98-107); Estimated GFR-MDRD 87; Glucose 90 mg/dL (83-110); Potassium 3.5 mmol/L (3.5-5.1); Sodium 140 mmol/L (136-145)
[2018-08-11] MEDS: Vancomycin HCl 1 GM in Premix Bag 1 BAG IVPB SCH ×2 (11:33→23:31)
--- NOTE | 2018-08-11 13:00 | PDOC.PN ---
- Subjective Encounter Start Date: 08/11/18 Encounter Start Time: 09:00 Pt seen for followup re: DVT. Denies chest pain, shortness of breath, fevers or chills. - Objective Resuscitation Status - Order Detail: 08/08/18 22:40 Resuscitation Status Routine Resuscitation Status: FULL: Full Resuscitation MAR Reviewed: Yes Vital Signs & Weight: Vital Signs (12 hours) Temp Pulse Resp BP Pulse Ox 08/11/18 11:38 98.4 F 77 18 145/78 H 95 08/11/18 09:20 157/88 H 08/11/18 08:16 97.7 F 80 20 185/97 H 94 L Weight Admit Weight 157 lb Weight 157 lb I&O: 08/10/18 08/11/18 08/12/18 06:59 06:59 06:59 Intake Total 914 1260 710 Output Total 304 921 4263 Balance 314 710 -290 Result Diagrams: 08/11/18 10:00 08/11/18 10:00 Additional Labs: Labs reviewed by me Phys Exam - Physical Examination Constitutional: NAD HEENT: moist MMs Neck: supple Respiratory: clear to auscultation bilateral Cardiovascular: RRR Gastrointestinal: soft Neurological: moves all 4 limbs Psychiatric: normal affect Deviation from normal: erythema over right leg, no elevated temperature Dx/Plan (1) UTI (urinary tract infection) Status: Acute Comment: continue IV antibiotics as below, urine cultures growing gram negative rods (2) Deep venous thrombosis of left femoral vein Code(s): I82.412 - ACUTE EMBOLISM AND THROMBOSIS OF LEFT FEMORAL VEIN Status: Acute Comment: on Eliquis (3) HLD (hyperlipidemia) Code(s): E78.5 - HYPERLIPIDEMIA, UNSPECIFIED Status: Chronic Comment: on statin (4) Cellulitis Code(s): L03.90 - CELLULITIS, UNSPECIFIED Status: Suspected Comment: It is unclear whether this is true cellulitis - Plan * . Review of Systems - Review of Systems Respiratory: negative: Cough, Shortness of Breath, SOB with Excertion, Pleuritic Pain, Wheezing Cardiovascular: negative: chest pain, palpitations, orthopnea, paroxysmal nocturnal dyspnea, edema, light headedness - Medications/Allergies Allergies/Adverse Reactions: Allergies Allergy/AdvReac Type Severity Reaction Status Date / Time banana Allergy Verified 08/09/18 06:40 Penicillins Allergy Verified 08/09/18 06:40 fentanyl AdvReac Verified 08/09/18 06:40 Medications: Current Medications Acetaminophen (Tylenol) 650 mg PO Q4H PRN PRN Reason: Headache/Fever/Mild Pain (1-3) Apixaban (Eliquis) 10 mg PO BID [facility] Last Admin: 08/11/18 09:24 Dose: 10 mg Aspirin (Aspirin) 325 mg PO DAILY [facility] Last Admin: 08/11/18 09:19 Dose: 325 mg Atorvastatin Calcium (Lipitor) 20 mg PO HS [facility] Last Admin: 08/10/18 21:16 Dose: 20 mg Famotidine (Pepcid) 20 mg SLOW IVP Q12HR [facility] Last Admin: 08/11/18 09:20 Dose: Not Given Famotidine (Pepcid) 20 mg PO BID [facility] Last Admin: 08/11/18 09:18 Dose: 20 mg Haloperidol Lactate (Haldol) 2 mg IM Q2H PRN PRN Reason: .AGITATION Last Admin: 08/10/18 02:07 Dose: 2 mg Sodium Chloride (Normal Saline 0.9%) 1,000 mls @ 75 mls/hr IV .[id number] [facility] Last Admin: 08/11/18 06:40 Dose: 1,000 mls Aztreonam 1 gm/ Sodium (Chloride) 100 mls @ 100 mls/hr IVPB Q12HR [facility] Last Admin: 08/11/18 09:20 Dose: 100 mls Vancomycin HCl 1 gm/ Device 200 mls @ 200 mls/hr IVPB 1100,2300 [facility] Last Admin: 08/11/18 11:33 Dose: 200 mls Miscellaneous Medication (Pharmacy To Dose) 1 each IVPB PRN PRN PRN Reason: Pharmacy to dose Ondansetron HCl (Zofran Odt) 4 mg PO Q6H PRN PRN Reason: Nausea/Vomiting Ondansetron HCl (Zofran) 4 mg IVP Q6H PRN PRN Reason: Nausea/Vomiting Sodium Chloride (Flush - Normal Saline) 10 ml IVF Q12HR [facility] Last Admin: 08/11/18 09:20 Dose: 10 ml Sodium Chloride (Flush - Normal Saline) 10 ml IVF PRN PRN PRN Reason: Saline Flush
--- NOTE | 2018-08-11 20:20 | EKG ---
Test Reason : Blood Pressure : / mmHG Vent. Rate : 075 BPM Atrial Rate : 075 BPM P-R Int : 118 ms QRS Dur : 068 ms QT Int : 394 ms P-R-T Axes : 056 026 049 degrees QTc Int : 439 ms Normal sinus rhythm Normal ECG Confirmed by KINGSTON TALBOT MD ([id number]), features editor VICKIE PALENCIA ([id number]) on 08/11/2018 8:20:10 PM Referred By: Confirmed By:KINGSTON TALBOT MD
[2018-08-11] MEDS: Atorvastatin Calcium 20 MG TAB PO SCH (20:54)
[2018-08-11 22:43] LABS: Vancomycin, Trough 19.2 ug/mL
[2018-08-12 05:44] LABS: #Eosinphils 0.6 thou/uL (0.0-0.7); #Lymphocytes 3.1 thou/uL (1.20-3.40); #Monocytes 0.8 thou/uL (0.11-0.59); #Neutrophils 4.5 thou/uL (1.40-6.50); %Basophils 0.4 % (0.0-1.0); %Eosinophils 6.3 % (0.0-10.0); %Lymphocytes 34.7 % (21.0-51.0); %Monocytes 8.4 % (0.0-10.0); %Neutrophils 50.2 % (42.0-75.0); Hemoglobin 11.6 g/dL (12.0-16.0); Mean Corpuscular Hemoglobin 30.3 pg (27.0-31.0); Mean Platelet Volume 8.5 fL (7.4-10.4); Platelet Count 204 thou/uL (130-400); RBC Distribution Width 12.3 % (11.5-14.5); Red Blood Cell (RBC) Count 3.84 mill/uL (4.20-5.40); White Blood Cell (WBC) Count 8.9 thou/uL (4.8-10.8)
[2018-08-12 05:56] LABS: Anion Gap 11 mmol/L (10-20); BUN (Urea Nitrogen) 5 mg/dL (9.8-20.1); Calc. Creatinine Clearance 63 mL/min (70-130); Carbon Dioxide 27 mmol/L (23-31); Chloride 106 mmol/L (98-107); Estimated GFR-MDRD Greater than 90; Glucose 99 mg/dL (83-110); Potassium 3.8 mmol/L (3.5-5.1); Sodium 140 mmol/L (136-145)
[2018-08-12] MEDS: Aspirin 325 MG TAB PO SCH (09:54)
[2018-08-12] MEDS: Famotidine/PF 20 mg/2ml Vial SLOW IVP SCH ×2 (09:54→20:22)
[2018-08-12] MEDS: Apixaban 5 MG TAB PO SCH ×2 (09:54→20:24)
[2018-08-12] MEDS: Famotidine 20 MG TAB PO SCH ×2 (09:54→20:24)
[2018-08-12] MEDS: Aztreonam 1 GM in Sodium Chloride 0.9% 100 ML IVPB SCH (10:10)
[2018-08-12] MEDS: Vancomycin HCl 1 GM in Premix Bag 1 BAG IVPB SCH (12:00)
--- NOTE | 2018-08-12 12:52 | PDOC.PN ---
- Subjective Encounter Start Date: 08/12/18 Encounter Start Time: 08:40 Pt seen for followup re: cellulitis. Denies chest pain, shortness of breath, fevers or chills. - Objective Resuscitation Status - Order Detail: 08/08/18 22:40 Resuscitation Status Routine Resuscitation Status: FULL: Full Resuscitation MAR Reviewed: Yes Vital Signs & Weight: Vital Signs (12 hours) Temp Pulse Resp BP Pulse Ox 08/12/18 09:00 98.2 F 82 18 130/74 97 Weight Admit Weight 157 lb Weight 157 lb I&O: 08/11/18 08/12/18 08/13/18 06:59 06:59 06:59 Intake Total 1260 2210 Output Total 550 3200 Balance 710 -990 Result Diagrams: 08/12/18 05:21 08/12/18 05:21 Additional Labs: Labs reviewed by me Phys Exam - Physical Examination Constitutional: NAD HEENT: moist MMs Neck: supple Respiratory: clear to auscultation bilateral Cardiovascular: RRR Gastrointestinal: soft Neurological: moves all 4 limbs Psychiatric: normal affect Deviation from normal: RLE rash better. Dtr reports it had extended to thigh when she came in Dx/Plan (1) Cellulitis Code(s): L03.90 - CELLULITIS, UNSPECIFIED Status: Acute Comment: Consult ID for recurrent cellulitis (2) UTI (urinary tract infection) Status: Acute Comment: continue ceftriaxone (3) Deep venous thrombosis of left femoral vein Code(s): I82.412 - ACUTE EMBOLISM AND THROMBOSIS OF LEFT FEMORAL VEIN Status: Acute Comment: continue Eliquis (4) HLD (hyperlipidemia) Code(s): E78.5 - HYPERLIPIDEMIA, UNSPECIFIED Status: Chronic Comment: on statin - Plan * . Review of Systems - Review of Systems Cardiovascular: negative: chest pain, palpitations, orthopnea, paroxysmal nocturnal dyspnea, edema, light headedness Gastrointestinal: negative: Nausea, Vomiting, Abdominal Pain, Diarrhea, Constipation, Melena, Hematochezia - Medications/Allergies Allergies/Adverse Reactions: Allergies Allergy/AdvReac Type Severity Reaction Status Date / Time banana Allergy Verified 08/09/18 06:40 Penicillins Allergy Verified 08/09/18 06:40 fentanyl AdvReac Verified 08/09/18 06:40 Medications: Current Medications Acetaminophen (Tylenol) 650 mg PO Q4H PRN PRN Reason: Headache/Fever/Mild Pain (1-3) Apixaban (Eliquis) 10 mg PO BID [facility] Last Admin: 08/12/18 09:54 Dose: 10 mg Aspirin (Aspirin) 325 mg PO DAILY [facility] Last Admin: 08/12/18 09:54 Dose: 325 mg Atorvastatin Calcium (Lipitor) 20 mg PO HS [facility] Last Admin: 08/11/18 20:54 Dose: 20 mg Famotidine (Pepcid) 20 mg SLOW IVP Q12HR [facility] Last Admin: 08/12/18 09:54 Dose: Not Given Famotidine (Pepcid) 20 mg PO BID [facility] Last Admin: 08/12/18 09:54 Dose: 20 mg Haloperidol Lactate (Haldol) 2 mg IM Q2H PRN PRN Reason: .AGITATION Last Admin: 08/10/18 02:07 Dose: 2 mg Sodium Chloride (Normal Saline 0.9%) 1,000 mls @ 75 mls/hr IV .[id number] [facility] Last Admin: 08/11/18 21:04 Dose: 1,000 mls Aztreonam 1 gm/ Sodium (Chloride) 100 mls @ 100 mls/hr IVPB Q12HR [facility] Last Admin: 08/12/18 10:10 Dose: 100 mls Vancomycin HCl 1 gm/ Device 200 mls @ 200 mls/hr IVPB 1100,2300 [facility] Last Admin: 08/12/18 12:00 Dose: 200 mls Miscellaneous Medication (Pharmacy To Dose) 1 each IVPB PRN PRN PRN Reason: Pharmacy to dose Ondansetron HCl (Zofran Odt) 4 mg PO Q6H PRN PRN Reason: Nausea/Vomiting Ondansetron HCl (Zofran) 4 mg IVP Q6H PRN PRN Reason: Nausea/Vomiting Sodium Chloride (Flush - Normal Saline) 10 ml IVF Q12HR [facility] Last Admin: 08/12/18 09:54 Dose: Not Given Sodium Chloride (Flush - Normal Saline) 10 ml IVF PRN PRN PRN Reason: Saline Flush
[2018-08-12] MEDS ORDERED: Iopamidol 370 76% 100 ML VIAL ONE (16:39)
[2018-08-12] MEDS: Sodium Chloride 0.9% 1,000 ML IV SCH (17:22)
--- NOTE | 2018-08-12 17:52 | CT ---
CT ABDOMEN AND PELVIS WITH CONTRAST: Comparison: Bilateral lower extremity ultrasound, 08-08-18. History: DVT seen on prior ultrasound. Evaluate for pelvic extension and pelvic thrombophlebitis. Technique: Multiple contiguous axial images were obtained in a CT of the abdomen and pelvis with cont rast. Coronal reformats were performed. FINDINGS: A 1.3 cm hypodensity in the right kidney likely represents a small cyst. The liver, gallbladder, left kidney, adrenal glands, and pancreas are unremarkable. The spleen is not definitely seen but there a re multiple round structures in the left upper quadrant of the abdomen which may represent splenials. The patient is status post hysterectomy. Moderate stool is seen throughout the colon. The small bowel is unremarkable. No abdominal or pelvic lymphadenopathy are seen. Atherosclerotic calcifications are seen in the aorta . This exam is performed in the arterial phase and the venous structures are not yet opacified. There fore, evaluation for clot within one of the iliac veins is not able to be performed on this examinati on. Iliac veins are symmetric in appearance without significant enlargement on one side compared to t he other. Degenerative changes are seen in the spine. Atelectasis is seen in both lung bases. There are bilater al pleural plaques. The abdominal wall soft tissues are unremarkable. IMPRESSION: 1. This study is inadequate to evaluate for DVT in the veins of the pelvis secondary to the arterial phase of this examination. 2. Right renal cyst. 3. Bibasilar atelectasis. 4. 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 POS: [facility]
[2018-08-12] MEDS: Atorvastatin Calcium 20 MG TAB PO SCH (20:24)
[2018-08-13] MEDS: Sodium Chloride 0.9% 1,000 ML IV SCH ×2 (04:54→17:41)
[2018-08-13 05:42] LABS: #Eosinphils 0.6 thou/uL (0.0-0.7); #Lymphocytes 1.3 thou/uL (1.20-3.40); #Monocytes 0.5 thou/uL (0.11-0.59); #Neutrophils 3.8 thou/uL (1.40-6.50); %Basophils 0.6 % (0.0-1.0); %Eosinophils 9.4 % (0.0-10.0); %Lymphocytes 20.9 % (21.0-51.0); %Neutrophils 61.1 % (42.0-75.0); Hemoglobin 11.2 g/dL (12.0-16.0); Mean Corpuscular HGB CONC 33.5 g/dL (32.0-36.0); Mean Corpuscular Hemoglobin 29.6 pg (27.0-31.0); Mean Corpuscular Volume 88.3 fL (78.0-98.0); Mean Platelet Volume 8.7 fL (7.4-10.4); Platelet Count 210 thou/uL (130-400); RBC Distribution Width 12.3 % (11.5-14.5); White Blood Cell (WBC) Count 6.3 thou/uL (4.8-10.8)
[2018-08-13 06:00] LABS: Anion Gap 10 mmol/L (10-20); BUN (Urea Nitrogen) 4 mg/dL (9.8-20.1); Calc. Creatinine Clearance 61 mL/min (70-130); Carbon Dioxide 24 mmol/L (23-31); Chloride 105 mmol/L (98-107); Estimated GFR-MDRD Greater than 90; Glucose 98 mg/dL (83-110); Potassium 3.3 mmol/L (3.5-5.1); Sodium 136 mmol/L (136-145)
--- NOTE | 2018-08-13 07:51 | CON ---
DATE OF CONSULTATION: 08/12/2018 REASON FOR CONSULTATION: Cellulitis versus DVT. HISTORY OF PRESENT ILLNESS: 88-year-old patient, admitted July 16 with complaint of worsening right lower extremity swelling. This has been present for the whole month before. Apparently, she had some procedure in the right foot and then there was development of pain and swelling. She was given oral antimicrobials in the outpatient setting, but then the pain persisted. She could not bear weight because of pain. The patient had a duplex ultrasound, which showed no evidence of deep vein thrombosis and the impression was right lower extremity cellulitis. The patient was treated with antimicrobial therapy with improvement and she was discharged 4 days later after a course of vancomycin and cefepime. She is now readmitted with right lower extremity swelling. This is a recurrence of the same problem. She had edema and pain in the right lower extremity with worsening pain. The patient this time had a repeat venogram, which was bilateral and there was evidence of normal blood flow, augmentation, and compression within the deep venous system on the right, but only partial compression of the femoral vein in the mid and distal thigh with evidence of DVT, so therefore, there was evidence of a left femoral vein deep vein thrombosis. Currently, she is awake. She has significant cognitive dysfunction. She denies any headaches. No respiratory symptoms. No abdominal pain. She has pain in the lower extremity on the right side mostly. PAST MEDICAL HISTORY: Includes dyslipidemia, swelling of the right lower extremity with concern for cellulitis with a negative venogram on the right side, some procedure by the line service technician in the right foot, which seems to have been associated with the pain in the right lower extremity, which developed subsequently. SURGICAL HISTORY: Includes hysterectomy. SOCIAL HISTORY: She lives with family, but never smoker. FAMILY HISTORY: Noncontributory. CURRENT MEDICATIONS: Include: 1. Tylenol. 2. Eliquis. 3. Aspirin. 4. Lipitor. 5. Aztreonam. 6. Pepcid. 7. Haldol. 8. Zofran. 9. Vancomycin. PHYSICAL EXAMINATION: VITAL SIGNS: T-max of 98.3, blood pressure 130/74, pulse 82, and respirations 18. SKIN: A little ulcer in the left gluteal region and she has a peripheral IV access. I do not see an equivocal erythema in the lower extremities. There is evidence that the patient had a swollen right leg, but that has diminished markedly over the past few weeks. HEENT: Ocular movements are conjugate. She has no [place] teeth remaining and oral cavity is somewhat dry. NECK: Supple. No jugular venous distention. LUNGS: Symmetric. Clear breath sounds. HEART: S1, S2. Regular rate without murmurs. ABDOMEN: Soft, not distended or tender. No ascites. No bladder distention. EXTREMITIES: Pulses are 1+ in popliteal and faintly palpable in dorsalis pedis. LABORATORY DATA: White cell count 7.0, hemoglobin 11, and platelets 204. Creatinine 0.76. Bilirubin 0.4, AST 13, ALT 7. Urinalysis; greater than 50 wbc 's, but no protein. Microbiology with coagulase-negative Staph, likely a contaminant and gram-negative luis in urine; culture final result, less than 5000 CFUs, likely a contaminant as well. ASSESSMENT: 1. Cognitive dysfunction, possible prior vascular dementia. 2. Mobility impairment. 3. Deep venous thrombosis, left lower extremity. 4. Swelling, right lower extremity with concern for cellulitis in the recent past. DISCUSSION: At this point, I do not see unequivocal evidence of cellulitis. I wonder if she has a pelvic area of obstruction in the venous system in view of the left-sided evidence of DVT and also the concomitant right lower extremity swelling. We will order a CT of abdomen and pelvis with contrast to clarify this issue. Would discontinue antimicrobial therapy at this point in time. Job ID: [id number] [facility]
[2018-08-13] MEDS: Famotidine 20 MG TAB PO SCH ×2 (09:26→19:47)
[2018-08-13] MEDS: Apixaban 5 MG TAB PO SCH ×2 (09:26→19:47)
[2018-08-13] MEDS: Aspirin 325 MG TAB PO SCH (09:26)
[2018-08-13] MEDS: Famotidine/PF 20 mg/2ml Vial SLOW IVP SCH ×2 (09:26→19:52)
[2018-08-13] MEDS ORDERED: Potassium Chloride 20 MEQ TAB PO SCH (10:15)
--- NOTE | 2018-08-13 12:42 | PDOC.PN ---
- Subjective Encounter Start Date: 08/13/18 Encounter Start Time: 08:40 Pt seen for followup re: DVT. Denies chest pain, shortness of breath, fevers or chills. - Objective Resuscitation Status - Order Detail: 08/08/18 22:40 Resuscitation Status Routine Resuscitation Status: FULL: Full Resuscitation MAR Reviewed: Yes Vital Signs & Weight: Vital Signs (12 hours) Temp Pulse Resp BP Pulse Ox 08/13/18 09:32 95 08/13/18 08:00 98.0 F 73 20 145/73 H 95 Weight Admit Weight 157 lb Weight 157 lb I&O: 08/12/18 08/13/18 08/14/18 06:59 06:59 06:59 Intake Total 2210 2800 Output Total 3200 2825 Balance -990 -25 Result Diagrams: 08/13/18 04:26 08/13/18 04:26 Additional Labs: Accuchecks 08/13/18 11:56 POC Glucose 101 Labs reviewed by me Phys Exam - Physical Examination Constitutional: NAD HEENT: moist MMs Neck: supple Respiratory: clear to auscultation bilateral Cardiovascular: RRR Gastrointestinal: soft Neurological: moves all 4 limbs Psychiatric: normal affect Dx/Plan (1) Deep venous thrombosis of left femoral vein Code(s): I82.412 - ACUTE EMBOLISM AND THROMBOSIS OF LEFT FEMORAL VEIN Status: Acute Comment: on Eliquis (2) HLD (hyperlipidemia) Code(s): E78.5 - HYPERLIPIDEMIA, UNSPECIFIED Status: Chronic Comment: continue statin (3) Cellulitis Code(s): L03.90 - CELLULITIS, UNSPECIFIED Status: Resolved Comment: appears to have resolved. Appreciate ID service input. Antibiotics stopped. (4) UTI (urinary tract infection) Status: Resolved Comment: Pt is off of antibiotics - Plan * . Review of Systems - Review of Systems Respiratory: negative: Cough, Shortness of Breath, SOB with Excertion, Pleuritic Pain, Wheezing Cardiovascular: negative: chest pain, palpitations, orthopnea, paroxysmal nocturnal dyspnea, edema, light headedness - Medications/Allergies Allergies/Adverse Reactions: Allergies Allergy/AdvReac Type Severity Reaction Status Date / Time banana Allergy Verified 08/09/18 06:40 Penicillins Allergy Verified 08/09/18 06:40 fentanyl AdvReac Verified 08/09/18 06:40 Medications: Current Medications Acetaminophen (Tylenol) 650 mg PO Q4H PRN PRN Reason: Headache/Fever/Mild Pain (1-3) Apixaban (Eliquis) 10 mg PO BID [facility] Last Admin: 08/13/18 09:26 Dose: 10 mg Aspirin (Aspirin) 325 mg PO DAILY [facility] Last Admin: 08/13/18 09:26 Dose: 325 mg Atorvastatin Calcium (Lipitor) 20 mg PO HS [facility] Last Admin: 08/12/18 20:24 Dose: 20 mg Famotidine (Pepcid) 20 mg SLOW IVP Q12HR [facility] Last Admin: 08/13/18 09:26 Dose: Not Given Famotidine (Pepcid) 20 mg PO BID [facility] Last Admin: 08/13/18 09:26 Dose: 20 mg Haloperidol Lactate (Haldol) 2 mg IM Q2H PRN PRN Reason: .AGITATION Last Admin: 08/10/18 02:07 Dose: 2 mg Sodium Chloride (Normal Saline 0.9%) 1,000 mls @ 75 mls/hr IV .[id number] [facility] Last Admin: 08/13/18 04:54 Dose: 1,000 mls Ondansetron HCl (Zofran Odt) 4 mg PO Q6H PRN PRN Reason: Nausea/Vomiting Ondansetron HCl (Zofran) 4 mg IVP Q6H PRN PRN Reason: Nausea/Vomiting Sodium Chloride (Flush - Normal Saline) 10 ml IVF Q12HR [facility] Last Admin: 08/13/18 09:26 Dose: Not Given Sodium Chloride (Flush - Normal Saline) 10 ml IVF PRN PRN PRN Reason: Saline Flush
[2018-08-13] MEDS: Atorvastatin Calcium 20 MG TAB PO SCH (19:47)
[2018-08-14] MEDS: Haloperidol Lactate 5 MG/ML VIAL IM PRN (03:15)
[2018-08-14 04:35] LABS: #Basophils 0.1 thou/uL (0.0-0.2); #Eosinphils 0.6 thou/uL (0.0-0.7); #Lymphocytes 2.3 thou/uL (1.20-3.40); #Monocytes 0.6 thou/uL (0.11-0.59); #Neutrophils 3.4 thou/uL (1.40-6.50); %Basophils 1.2 % (0.0-1.0); %Eosinophils 9.1 % (0.0-10.0); %Lymphocytes 32.8 % (21.0-51.0); %Neutrophils 48.9 % (42.0-75.0); Hemoglobin 11.9 g/dL (12.0-16.0); Mean Corpuscular HGB CONC 33.6 g/dL (32.0-36.0); Mean Corpuscular Hemoglobin 29.9 pg (27.0-31.0); Mean Corpuscular Volume 89.1 fL (78.0-98.0); Mean Platelet Volume 8.3 fL (7.4-10.4); Platelet Count 230 thou/uL (130-400); RBC Distribution Width 12.4 % (11.5-14.5); Red Blood Cell (RBC) Count 3.98 mill/uL (4.20-5.40); White Blood Cell (WBC) Count 6.9 thou/uL (4.8-10.8)
[2018-08-14 04:44] LABS: Anion Gap 10 mmol/L (10-20); BUN (Urea Nitrogen) 5 mg/dL (9.8-20.1); Calc. Creatinine Clearance 62 mL/min (70-130); Calcium 9.3 mg/dL (7.8-10.44); Carbon Dioxide 25 mmol/L (23-31); Chloride 108 mmol/L (98-107); Estimated GFR-MDRD Greater than 90; Glucose 110 mg/dL (83-110); Potassium 3.4 mmol/L (3.5-5.1); Sodium 140 mmol/L (136-145)
[2018-08-14] MEDS: Famotidine/PF 20 mg/2ml Vial SLOW IVP SCH (08:08)
[2018-08-14] MEDS: Aspirin 325 MG TAB PO SCH (08:09)
[2018-08-14] MEDS: Apixaban 5 MG TAB PO SCH ×2 (08:09→20:04)
[2018-08-14] MEDS: Sodium Chloride 0.9% 1,000 ML IV SCH ×2 (08:09→20:03)
[2018-08-14] MEDS: Famotidine 20 MG TAB PO SCH ×2 (08:09→20:04)
--- NOTE | 2018-08-14 11:09 | PDOC.PN ---
- Subjective Encounter Start Date: 08/14/18 Encounter Start Time: 08:00 Pt seen for followup re: physical deconditioning. Denies chest pain, shortness of breath, fevers or chills. - Objective Resuscitation Status - Order Detail: 08/08/18 22:40 Resuscitation Status Routine Resuscitation Status: FULL: Full Resuscitation MAR Reviewed: Yes Vital Signs & Weight: Vital Signs (12 hours) Temp Pulse Resp BP Pulse Ox 08/14/18 07:49 97.6 F 93 18 150/78 H 95 Weight Admit Weight 157 lb Weight 157 lb I&O: 08/13/18 08/14/18 08/15/18 06:59 06:59 06:59 Intake Total 2800 2475 Output Total 2825 2500 Balance -25 -25 Result Diagrams: 08/14/18 04:18 08/14/18 04:18 Additional Labs: Accuchecks 08/13/18 11:56 POC Glucose 101 Labs reviewed by me Phys Exam - Physical Examination Constitutional: NAD HEENT: moist MMs Neck: supple Respiratory: clear to auscultation bilateral Cardiovascular: RRR Gastrointestinal: soft Neurological: moves all 4 limbs Psychiatric: normal affect Dx/Plan (1) Physical deconditioning Code(s): R53.81 - OTHER MALAISE Status: Acute Comment: await therapy recommendations (2) Deep venous thrombosis of left femoral vein Code(s): I82.412 - ACUTE EMBOLISM AND THROMBOSIS OF LEFT FEMORAL VEIN Status: Acute Comment: continue Eliquis (3) HLD (hyperlipidemia) Code(s): E78.5 - HYPERLIPIDEMIA, UNSPECIFIED Status: Chronic Comment: on statin (4) Cellulitis Code(s): L03.90 - CELLULITIS, UNSPECIFIED Status: Resolved (5) UTI (urinary tract infection) Status: Resolved - Plan * . Review of Systems - Review of Systems Respiratory: negative: Cough, Shortness of Breath, SOB with Excertion, Pleuritic Pain, Wheezing Cardiovascular: negative: chest pain, palpitations, orthopnea, paroxysmal nocturnal dyspnea, edema, light headedness - Medications/Allergies Allergies/Adverse Reactions: Allergies Allergy/AdvReac Type Severity Reaction Status Date / Time banana Allergy Verified 08/09/18 06:40 Penicillins Allergy Verified 08/09/18 06:40 fentanyl AdvReac Verified 08/09/18 06:40 Medications: Current Medications Acetaminophen (Tylenol) 650 mg PO Q4H PRN PRN Reason: Headache/Fever/Mild Pain (1-3) Last Admin: 08/13/18 21:15 Dose: 650 mg Apixaban (Eliquis) 10 mg PO BID [facility] Last Admin: 08/14/18 08:09 Dose: 10 mg Aspirin (Aspirin) 325 mg PO DAILY [facility] Last Admin: 08/14/18 08:09 Dose: 325 mg Atorvastatin Calcium (Lipitor) 20 mg PO HS [facility] Last Admin: 08/13/18 19:47 Dose: 20 mg Famotidine (Pepcid) 20 mg SLOW IVP Q12HR [facility] Last Admin: 08/14/18 08:08 Dose: Not Given Famotidine (Pepcid) 20 mg PO BID [facility] Last Admin: 08/14/18 08:09 Dose: 20 mg Haloperidol Lactate (Haldol) 2 mg IM Q2H PRN PRN Reason: .AGITATION Last Admin: 08/14/18 03:15 Dose: 2 mg Sodium Chloride (Normal Saline 0.9%) 1,000 mls @ 75 mls/hr IV .[id number] [facility] Last Admin: 08/14/18 08:09 Dose: 1,000 mls Ondansetron HCl (Zofran Odt) 4 mg PO Q6H PRN PRN Reason: Nausea/Vomiting Ondansetron HCl (Zofran) 4 mg IVP Q6H PRN PRN Reason: Nausea/Vomiting Sodium Chloride (Flush - Normal Saline) 10 ml IVF Q12HR [facility] Last Admin: 08/14/18 08:08 Dose: Not Given Sodium Chloride (Flush - Normal Saline) 10 ml IVF PRN PRN PRN Reason: Saline Flush
[2018-08-14] MEDS: Atorvastatin Calcium 20 MG TAB PO SCH (20:04)
[2018-08-15 07:52] VITALS: BP 160/82; TEMP 97
[2018-08-15] MEDS: Aspirin 325 MG TAB PO SCH (08:56)
[2018-08-15] MEDS: Famotidine 20 MG TAB PO SCH (08:56)
[2018-08-15] MEDS: Apixaban 5 MG TAB PO SCH (08:56)
[2018-08-15] MEDS: Sodium Chloride 0.9% 1,000 ML IV SCH (08:57)
[2018-08-15 09:15] LABS: #Eosinphils 0.5 thou/uL (0.0-0.7); #Lymphocytes 1.9 thou/uL (1.20-3.40); #Monocytes 0.6 thou/uL (0.11-0.59); #Neutrophils 4.1 thou/uL (1.40-6.50); %Basophils 0.6 % (0.0-1.0); %Monocytes 8.1 % (0.0-10.0); %Neutrophils 57.3 % (42.0-75.0); Mean Corpuscular HGB CONC 32.4 g/dL (32.0-36.0); Mean Corpuscular Volume 89.4 fL (78.0-98.0); Mean Platelet Volume 8.8 fL (7.4-10.4); Platelet Count 226 thou/uL (130-400); RBC Distribution Width 12.4 % (11.5-14.5); Red Blood Cell (RBC) Count 4.15 mill/uL (4.20-5.40); White Blood Cell (WBC) Count 7.2 thou/uL (4.8-10.8)
[2018-08-15 09:35] LABS: Anion Gap 11 mmol/L (10-20); BUN (Urea Nitrogen) 5 mg/dL (9.8-20.1); Calc. Creatinine Clearance 60 mL/min (70-130); Calcium 9.1 mg/dL (7.8-10.44); Carbon Dioxide 22 mmol/L (23-31); Chloride 108 mmol/L (98-107); Estimated GFR-MDRD Greater than 90; Glucose 98 mg/dL (83-110); Sodium 137 mmol/L (136-145)
--- NOTE | 2018-08-16 10:54 | DIS ---
DATE OF ADMISSION: 08/09/2018 DATE OF DISCHARGE: 08/15/2018 PRIMARY CARE PROVIDER: Dr. Zain Panda. DISCHARGE DIAGNOSES: 1. Deep vein thrombosis. 2. Cellulitis. 3. Pressure ulcer, present on admission. CONDITION OF PATIENT ON THE DAY OF DISCHARGE: Stable. I assessed Ms. Dougherty on the day of discharge. She denies any chest pain or shortness of breath. Vital signs are stable. S1 and S2 are heard, regular. Lungs are clear to auscultation bilaterally. DISCHARGE MEDICATIONS: 1. Atorvastatin 40 mg at bedtime. 2. Multivitamins 1 capsule daily. 3. Apixaban 10 mg two times a day for two more doses followed by 5 mg two times a day. 4. Aspirin has been discontinued. HOSPITAL COURSE: Ms. Dougherty is a pleasant 88-year-old lady, who was admitted to [facility] on August 08, 2018, for deep vein thrombosis and cellulitis. Please refer to Dr. Christine's history and physical note dated August 09, 2018, for further details. She was initially treated with Lovenox and transitioned to apixaban. She also had cellulitis at the time of admission. She was treated with intravenous antibiotics, with resolution of cellulitis. She was seen by Infectious Diseases Service; at which time, there was significant improvement in the cellulitis. She may need to follow up with Infectious Diseases Service for suppressive treatment for cellulitis. Arrangements are being made to resume home health at the time of discharge. On the day of discharge, Ms. Dougherty has white count 7200, hemoglobin 12, and platelet count 226,000. Sodium 137, potassium 4.0, and creatinine 0.73. She was also treated for suspected urinary tract infection. However, urine cultures grew gram-negative rods, but less than 5000 colony-forming units/mL. No further workup was performed because of the low colony count. DISCHARGE DESTINATION: Home. TOTAL AMOUNT OF TIME SPENT COORDINATING THIS DISCHARGE: 32 minutes. Many thanks for allowing me to participate in your patient's care. Please feel free to contact me with any questions or concerns. Job ID: [id number]
--- NOTE | 2018-08-17 16:07 | DIS ---
DATE OF ADMISSION: 08/09/2018 DATE OF DISCHARGE: 08/15/2018 ADDENDUM: Ms. Dougherty also had CT scan of the abdomen and pelvis during this hospitalization. It was inadequate to evaluate for DVT in the pelvic veins secondary to the arterial phase of the examination. 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 During this hospitalization, she was also physically deconditioned. She is being discharged to home with home health support. Job ID: [id number]
== END 2018-08-15 15:24 | disposition home health service (06) | DRG 300 ==
LOC: ERS 17:44 → 2NO 08-09 00:15 → T4-A 08-10 22:42
PROVIDERS: ADMIT Internal Medicine; ATTEND Internal Medicine
DX: I82.412 Acute embolism and thrombosis of left femoral vein (principal); L03.115 Cellulitis of right lower limb; N39.0 Urinary tract infection, site not specified; E78.5 Hyperlipidemia, unspecified; N28.1 Cyst of kidney, acquired; L89.312 Pressure ulcer of right buttock, stage 2; R53.81 Other malaise; Z88.0 Allergy status to penicillin; Z91.018 Allergy to other foods; Z79.82 Long term (current) use of aspirin
CPT/HCPCS: 36415; 36416; 71045; 74177; 80048; 80053; 80202; 81003; 81015; 82553; 83605; 83690; 83880; 84484; 85025; 87040; 87086; 87149; 93005; 93970; 96365; 96366; 96367; 96372; 96375; G8978-GP-CM; G8979-GP-CJ; G8987-GO-CL; G8988-GO-CJ; G8996-GN-CJ; G8997-GN-CJ; J1630; J1650; J2185; J2270; J3370; J3490; J7050; S0028